=== PATIENT | female | born 1995 | race Caucasian/White ===

== ENCOUNTER 2018-04-28 10:41 | Emergency (ER) | payer SELFPAY ==
[~2018-04-28] VITALS: Ht 165.1 cm; Wt 63.6 kg
[2018-04-28 10:54] VITALS: BP 128/75
[2018-04-28] MEDS ORDERED: FLAGYL 250250 MG/TAB PO (11:59)
[2018-04-28] MEDS ORDERED: ATARAX 25MG25 MG/TAB PO (12:00)
[2018-04-28 12:58] LABS: COLLECTION METHOD CLEAN CATCH
[2018-04-28 13:07] LABS: BASO # 0.1 (0.0-0.2); BASO % 0.9 % (0.0-2.0); EOS # 0.1 (0.0-0.7); EOS % 1.1 % (0-4.0); GRAN # 2.6 (1.4-6.5); GRAN % 39.7 % (42.2-75.2); HEMOGLOBIN 11.7 g/dl (12.5-16.0); LYMPH # 3.1 (1.2-3.4); LYMPH % 47.5 % (20.0-51.0); MEAN CELL VOLUME 91 fl (80.0-100.0); MEAN CORPUSCULAR HEMOGLOBIN 31 pg (27.0-31.0); MEAN CORPUSCULAR HGB CONC 34 g/dl (33.0-37.0); MEAN PLATELET VOLUME 10.8 fl (7.4-10.4); MONO # 0.6 (0.1-0.6); MONO % 9.6 % (1.7-9.3); PLATELET COUNT 283 K/mm3 (130-400); RED BLOOD COUNT 3.76 M/mm3 (4.10-5.30)
[2018-04-28 13:08] LABS: HEMATOCRIT 34.3 % (37.0-47.0)
[2018-04-28 13:14] LABS: MUCOUS Present /lpf; PH 7 (5-8); SQUAMOUS EPITHELIAL 0-2 /hpf; URINE APPEARANCE Clear; URINE BACTERIA None Seen /hpf; URINE BILIRUBIN Negative (NEGATIVE); URINE BLOOD Negative (NEGATIVE); URINE COLOR Straw; URINE GLUCOSE 3+ (NEGATIVE); URINE KETONE Trace (NEGATIVE); URINE LEUKOCYTE ESTERASE Negative (NEGATIVE); URINE NITRATE Negative (NEGATIVE); URINE PROTEIN(semi-quant) Negative (NEGATIVE); URINE RBC None Seen /hpf; URINE UROBILINOGEN Negative (NEGATIVE)
[2018-04-28 13:17] LABS: ALBUMIN 3.4 gm/dL (3.5-5.0); BILIRUBIN,TOTAL 0.3 mg/dL (0.0-1.0); CALCIUM 9.4 mg/dL (8.4-10.2); CREATININE, serum 0.38 mg/dL (0.52-1.25); POTASSIUM 3.7 mmol/L (3.4-5.0); TOTAL PROTEIN 6.8 gm/dL (6.4-8.2)
[2018-04-28] MEDS ORDERED: DIFLUCAN150 MG PO (13:51)
[2018-04-28 14:00] VITALS: PULSE 86; TEMP 97.6
== END 2018-04-28 14:01 | disposition home or self-care (01) ==
LOC: COL.ER 10:41
PROVIDERS: Nurse Practitioner Primary Care
DX: B37.3 Candidiasis of vulva and vagina (principal); E10.9 Type 1 diabetes mellitus without complications; I10 Essential (primary) hypertension; Z85.6 Personal history of leukemia; Z87.442 Personal history of urinary calculi
CPT/HCPCS: J1885

== ENCOUNTER 2018-05-06 17:16 | Emergency (ER) | payer SELFPAY ==
[~2018-05-06] VITALS: Ht 165.1 cm; Wt 63.7 kg
[~2018-05-06 17:16] MED LIST: ATARAX 25MG25 MG/TAB PO; DIFLUCAN150 MG PO; FLAGYL 250250 MG/TAB PO
[2018-05-06 17:25] VITALS: TEMP 98.4
[2018-05-06] MEDS ORDERED: BACTRIM DS 8001 TAB PO (17:51)
[2018-05-06] MEDS ORDERED: NOVOLOG 100U100 U/M1 SQ (18:15)
[2018-05-06] MEDS ORDERED: LEVEMIR100 U/ML SQ (18:16)
[2018-05-06 18:39] LABS: CALCIUM 8.7 mg/dL (8.4-10.2); CREATININE, serum 0.58 mg/dL (0.52-1.25); POTASSIUM 3.7 mmol/L (3.4-5.0)
[2018-05-06 19:52] VITALS: BP 122/74; PULSE 92
[2018-05-08] VITALS (563 sets, daily range): O2SAT 85–100
[2018-05-09] VITALS (202 sets, daily range): O2SAT 91–100
== END 2018-05-06 19:50 | disposition home or self-care (01) ==
LOC: COL.ER 17:16
PROVIDERS: Nurse Practitioner
DX: S81.802A Unspecified open wound, left lower leg, initial encounter (principal); E10.9 Type 1 diabetes mellitus without complications; I10 Essential (primary) hypertension; F32.9 Major depressive disorder, single episode, unspecified; F41.9 Anxiety disorder, unspecified; Z88.0 Allergy status to penicillin; Z23 Encounter for immunization; X58.XXXA Exposure to other specified factors, initial encounter
CPT/HCPCS: J1815

== ENCOUNTER 2018-05-08 09:30 | Inpatient (IN) | payer BC ==
[~2018-05-08] VITALS: Ht 167.6 cm; Wt 62.3 kg
[~2018-05-08 09:30] MED LIST changes: +BACTRIM DS 8001 TAB PO; +LEVEMIR100 U/ML SQ; +NOVOLOG 100U100 U/M1 SQ
[2018-05-08 10:20] LABS: COLLECTION METHOD CLEAN CATCH
[2018-05-08 10:20] LABS: HEMATOCRIT 44.3 % (37.0-47.0); HEMOGLOBIN 14.6 g/dl (12.5-16.0); MEAN CELL VOLUME 94 fl (80.0-100.0); MEAN CORPUSCULAR HEMOGLOBIN 31 pg (27.0-31.0); MEAN CORPUSCULAR HGB CONC 33 g/dl (33.0-37.0); MEAN PLATELET VOLUME 10.7 fl (7.4-10.4); PLATELET COUNT 571 K/mm3 (130-400); RED BLOOD COUNT 4.72 M/mm3 (4.10-5.30); REDCELL DISTRIBUTION WIDTH-CV 14.1 % (11.5-14.5)
[2018-05-08 10:29] LABS: MUCOUS Present /lpf; PH 5 (5-8); SQUAMOUS EPITHELIAL None Seen /hpf; URINE APPEARANCE Clear; URINE BACTERIA Rare /hpf; URINE BILIRUBIN Negative (NEGATIVE); URINE BLOOD Negative (NEGATIVE); URINE COLOR Straw; URINE GLUCOSE 3+ (NEGATIVE); URINE KETONE 2+ (NEGATIVE); URINE LEUKOCYTE ESTERASE Negative (NEGATIVE); URINE NITRATE Negative (NEGATIVE); URINE PROTEIN(semi-quant) 1+ (NEGATIVE); URINE RBC 0-2 /hpf; URINE UROBILINOGEN Negative (NEGATIVE)
[2018-05-08 10:43] LABS: ALANINE AMINOTRANSFERASE 19 U/L (9-52); ALBUMIN 4.6 gm/dL (3.5-5.0); ALKALINE PHOSPHATASE 362 U/L (50-136); AST,SGOT 25 U/L (15-37); BILIRUBIN,TOTAL 0.4 mg/dL (0.0-1.0); BLOOD UREA NITROGEN 16 mg/dL (7-17); CALCIUM 9.3 mg/dL (8.4-10.2); CHLORIDE 98 mmol/L (98-107); CREATININE, serum 0.78 mg/dL (0.52-1.25); MAGNESIUM 2.1 mg/dL (1.6-2.3); PHOSPHOROUS 6.7 mg/dL (2.5-4.5); POTASSIUM 5.2 mmol/L (3.4-5.0); SODIUM 133 mmol/L (137-145); TOTAL PROTEIN 8.6 gm/dL (6.4-8.2)
[2018-05-08 10:45] LABS: GLUCOSE 847 mg/dL (74-106)
[2018-05-08 10:46] LABS: CARBON DIOXIDE < 5 mmol/L (22-30)
[2018-05-08 10:47] LABS: ACETONE,SERUM LARGE
[2018-05-08 10:53] LABS: BAND 16 % (0-10); LYMPHOCYTE 21 % (20.0-51.0); NEUTROPHILS 61 % (42.0-75.2); NUCLEATED RED BLOOD CELL 1 (0-6)
[2018-05-08 10:54] LABS: PLATELET ESTIMATE INCREASED (NORMAL)
[2018-05-08 11:29] LABS: TSH w REFLEX 1.06 uIU/mL (0.465-4.680)
--- NOTE | 2018-05-08 11:56 | NUR ---
PATIENT ARRIVED TO ICU ROOM 4 VIA STRETCHER. SHE IS MAKING UNCOMPREHENSABLE SOUNDS. IV FLUIDS INFUSING WELL AN INSULIN DRIP AT 5 UNITS PER HOUR. PATIENT WAS PLACED ON THE SENIOR COMMERCIAL LOAN OFFICER WITH A HEART RATE OF 148. OTHER VITAL SIGNS STABLE AT THIS TIME.
[2018-05-08 12:12] LABS: ARTERIAL BLD GAS O2 SATURATION 97.2 % (92-100); ARTERIAL BLOOD GAS BASE EXCESS -29.3 (-2-2); ARTERIAL BLOOD GAS HCO3 1.7 meq/L (22-26); ARTERIAL BLOOD GAS PCO2 8.6 mmHg (35-45); ARTERIAL BLOOD GAS PO2 142.7 mmHg (80-100); ARTERIAL BLOOD GAS pH 6.92 (7.35-7.45)
--- NOTE | 2018-05-08 12:54 | NUR ---
Patient was brought in by EMS and then admitted to the ICU. SW attempted to get a contact number for next of kin but patient was not able to provide a clear number and patient's phone was locked. Doctor and nurse phone number given on patient's facesheet, Luke Mccoy (patient's father). Doctor was unable to speak with anyone but she left a message.
--- NOTE | 2018-05-08 12:55 | NUR ---
DR. WADE HERE TO SEE PATIENT AND SANJANA ORTIZ WITH ANESTHESIA ALSO HERE. SEDATION WAS PROVIDED AND GIVEN BY ANESTHESIA. PATIENT WAS INTUBATED WITH A 7.5 ET TUBE. 20 CM AT THE TEETH. OG AND CROWE CATHETER INSERTED. PATIENT WILL BE STARTED ON A PROPOFOL DRIP FOR SEDATION.
--- NOTE | 2018-05-08 13:22 | NUR ---
ASSISTED RENTAL SALES ASSOCIATE WITH INTUBATION. PT TOLERATED WELL. 7.[address] WADE PT'S TUBE IS NOW 20 AT THIS TEETH FOR PLACEMENT. PT PLACED ON MECHANICAL VENT. PER SETTINGS BY DR. WADE AT BEDSIDE.
--- NOTE | 2018-05-08 13:24 | NUR ---
UNABLE TO OBTAIN ANY TYPE OF BLOOD SAMPLE FROM PATIENT PRIOR TO THIS BLOOD GLUCOSE RESULT.
[2018-05-08 13:49] LABS: TRICYCLIC ANTIDEPRESS URINE NEGATIVE
--- NOTE | 2018-05-08 13:50 | NUR ---
PATIENT EXTREMELY AGGITATED. SHE CONTINUES TO PULL ON HER TUBES AND LINES AND TO SIT UP IN BED. ORDER FOR FENTANYL RECEIVED.
[2018-05-08 13:51] VITALS: BP 146/92; PULSE 145; TEMP 97
[2018-05-08 14:01] LABS: ALANINE AMINOTRANSFERASE 18 U/L (9-52); ALBUMIN 3.9 gm/dL (3.5-5.0); ALKALINE PHOSPHATASE 286 U/L (50-136); ANION GAP 24 mmol/L (7-16); AST,SGOT 25 U/L (15-37); BILIRUBIN,TOTAL 0.3 mg/dL (0.0-1.0); BLOOD UREA NITROGEN 15 mg/dL (7-17); CALCIUM 7.7 mg/dL (8.4-10.2); CHLORIDE 112 mmol/L (98-107); CREATININE, serum 0.59 mg/dL (0.52-1.25); MAGNESIUM 1.8 mg/dL (1.6-2.3); PHOSPHOROUS 5.1 mg/dL (2.5-4.5); POTASSIUM 3.7 mmol/L (3.4-5.0); SODIUM 142 mmol/L (137-145); TOTAL PROTEIN 7.5 gm/dL (6.4-8.2)
[2018-05-08 14:03] LABS: GLUCOSE 605 mg/dL (74-106)
[2018-05-08 14:06] LABS: ACETAMINOPHEN < 10 ug/mL (10-30); ALCOHOL(ethanol),MEDICAL < 10 mg/dL; CARBON DIOXIDE 6 mmol/L (22-30); SALICYLATE < 1.0 mg/dL
[2018-05-08 14:08] LABS: ARTERIAL BLD GAS O2 SATURATION 97.8 % (92-100); ARTERIAL BLD GAS TCO2 CT 4.7; ARTERIAL BLOOD GAS BASE EXCESS -25.6 (-2-2); ARTERIAL BLOOD GAS HCO3 4.2 meq/L (22-26)
[2018-05-08 14:09] LABS: ARTERIAL BLOOD GAS PCO2 17.6 mmHg (35-45); ARTERIAL BLOOD GAS PO2 143.6 mmHg (80-100)
--- NOTE | 2018-05-08 14:30 | NUR ---
PATIENT STILL CONTINUES TO BE AGGITATED DESPITE FENTANYL. ORDER FOR PRECEDEX RECEIVED WITH IV PUSH VECURONIUM ALSO ORDERED PRN.
[2018-05-08 15:50] LABS: CALCIUM 7.7 mg/dL (8.4-10.2); CREATININE, serum 0.62 mg/dL (0.52-1.25); POTASSIUM 3.9 mmol/L (3.4-5.0)
[2018-05-08 16:00] VITALS: BP 115/74; PULSE 104; TEMP 99.3
[2018-05-08 16:05] VITALS: PULSE 147
--- NOTE | 2018-05-08 17:00 | NUR ---
SEDATION VACATION NOT DONE DUE TO JUST GETTING INTUBATED
--- NOTE | 2018-05-08 17:05 | NUR ---
CAN NOT ADDRESS PATIENT'S HOME MEDICATIONS.
[2018-05-08 17:13] LABS: ARTERIAL BLD GAS O2 SATURATION 97.3 % (92-100); ARTERIAL BLOOD GAS BASE EXCESS -14.1 (-2-2); ARTERIAL BLOOD GAS HCO3 11.2 meq/L (22-26); ARTERIAL BLOOD GAS PCO2 25.5 mmHg (35-45); ARTERIAL BLOOD GAS PO2 102.2 mmHg (80-100); ARTERIAL BLOOD GAS pH 7.26 (7.35-7.45)
--- NOTE | 2018-05-08 17:14 | NUR ---
ICU staff has not been able to contact any family for patient. SW contacted [place] [employer] about sending an officer to patient's house to make contact with family/roommates. PRICILA provided ICUs phone number and [place] [employer] will contact them when they make contact with family. SW informed nurse.
--- NOTE | 2018-05-08 17:30 | NUR ---
FLUIDS SWITCHED TO D51/2NS
[2018-05-08 17:53] LABS: CALCIUM 8.1 mg/dL (8.4-10.2); CREATININE, serum 0.55 mg/dL (0.52-1.25); POTASSIUM 4.2 mmol/L (3.4-5.0)
[2018-05-08 18:00] VITALS: BP 89/44
[2018-05-08 18:15] VITALS: BP 90/42
--- NOTE | 2018-05-08 19:10 | NUR ---
REPORT GIVEN TO JELLY SOMERS.
--- NOTE | 2018-05-08 19:38 | NUR ---
Patient assessment completed and charted at this time, please see documentation for details. Patient in bed, tolerating ventilator at this time. Restraints tied and reinforced currently. This nurse spoke with Dr. Zamora and he stated he would be here early to potentially extubate patient. Will continue to monitor and assess.
[2018-05-08 19:56] LABS: CALCIUM 8.1 mg/dL (8.4-10.2); CREATININE, serum 0.52 mg/dL (0.52-1.25)
[2018-05-08 20:00] VITALS: BP 96/55; PULSE 105; TEMP 99.3
[2018-05-08 21:11] LABS: ARTERIAL BLD GAS O2 SATURATION 98.1 % (92-100); ARTERIAL BLD GAS TCO2 CT 15.9; ARTERIAL BLOOD GAS BASE EXCESS -6.8 (-2-2); ARTERIAL BLOOD GAS HCO3 15.2 meq/L (22-26); ARTERIAL BLOOD GAS pH 7.46 (7.35-7.45)
[2018-05-08 21:12] LABS: ARTERIAL BLOOD GAS PCO2 22.1 mmHg (35-45); ARTERIAL BLOOD GAS PO2 136.7 mmHg (80-100)
--- NOTE | 2018-05-08 21:14 | NUR ---
[facility] CALLED WITH 2100 ABG RESULTS. DOCTOR WILL REVIEW RESULTS AND GO OVER CURRENT SETTINGS TO MAKE ANY CHANGED IF NECESSARY. [facility] CALLED BACK AT 2136 WITH NO VENT CHANGED FROM ABG AT 2100. WILL PROCEED WITH AM ABG AND SMART CARE PER DR. WADE WITH HOPES OF EXTUBATION. MORNING CARE WILL BE DONE EARLY DR. WADE IS COMING IN AROUND 0630 ON 05/09/18
[2018-05-08 21:57] LABS: CREATININE, serum 0.52 mg/dL (0.52-1.25); POTASSIUM 3.5 mmol/L (3.4-5.0)
[2018-05-09] VITALS (8 sets, daily range): BP systolic 101–140; BP diastolic 67–95; PULSE 82–108; TEMP 97.2–99.7
[2018-05-09 00:10] LABS: CALCIUM 8.1 mg/dL (8.4-10.2); CREATININE, serum 0.49 mg/dL (0.52-1.25); POTASSIUM 3.3 mmol/L (3.4-5.0)
[2018-05-09 01:52] LABS: CALCIUM 8.1 mg/dL (8.4-10.2); CREATININE, serum 0.46 mg/dL (0.52-1.25); POTASSIUM 3.7 mmol/L (3.4-5.0)
[2018-05-09 04:04] LABS: CALCIUM 8.1 mg/dL (8.4-10.2); CREATININE, serum 0.43 mg/dL (0.52-1.25); POTASSIUM 3.8 mmol/L (3.4-5.0)
[2018-05-09 04:57] LABS: ARTERIAL BLD GAS O2 SATURATION 98.2 % (92-100); ARTERIAL BLOOD GAS BASE EXCESS -7.4 (-2-2); ARTERIAL BLOOD GAS HCO3 14.3 meq/L (22-26); ARTERIAL BLOOD GAS pH 7.47 (7.35-7.45)
[2018-05-09 04:58] LABS: ARTERIAL BLOOD GAS PCO2 20.4 mmHg (35-45)
[2018-05-09 05:52] LABS: BASO % 0.1 % (0.0-2.0); EOS % 0.3 % (0-4.0); GRAN # 4.7 (1.4-6.5); GRAN % 51.8 % (42.2-75.2); LYMPH # 3.9 (1.2-3.4); LYMPH % 42.8 % (20.0-51.0); MEAN CORPUSCULAR HGB CONC 35 g/dl (33.0-37.0); MEAN PLATELET VOLUME 10.2 fl (7.4-10.4); MONO # 0.4 (0.1-0.6); MONO % 4.2 % (1.7-9.3); RED BLOOD COUNT 3.36 M/mm3 (4.10-5.30); REDCELL DISTRIBUTION WIDTH-CV 14.6 % (11.5-14.5)
[2018-05-09 05:54] LABS: HEMATOCRIT 29.2 % (37.0-47.0); HEMOGLOBIN 10.2 g/dl (12.5-16.0); MEAN CELL VOLUME 87 fl (80.0-100.0); MEAN CORPUSCULAR HEMOGLOBIN 30 pg (27.0-31.0); PLATELET COUNT 337 K/mm3 (130-400)
[2018-05-09 06:04] LABS: CALCIUM 8.2 mg/dL (8.4-10.2); CREATININE, serum 0.45 mg/dL (0.52-1.25); POTASSIUM 3.6 mmol/L (3.4-5.0)
--- NOTE | 2018-05-09 06:22 | NUR ---
Patient extubated at [address] with Dr. Zamora in room. Patient tolerated well, on RA with SPO2 of 100% . No issues post extubation, complains of mild discomfort in throat. Patient alert and oriented, asking for phone. Patient was given phone at this time, advised to limit talking as it can irritate throat more. will continue to monitor and assess.
--- NOTE | 2018-05-09 06:48 | NUR ---
PT EXTUBATED TO RA AT 0630. PT PASSED SMART CARE AND DR WADE GAVE THE GO AHEAD TO EXTUBATED THE PT. NO DISTRESS NOTED AND WILL CONTINUE TO MONITOR. PT AT 100% AT 89 HR RR AT 20.
--- NOTE | 2018-05-09 07:30 | NUR ---
Bedside report received from JELLY Dumont. Patient is extubated. VS WNL. IV gtts reviewed. Patient asks for water or ice at this time. Will continue to monitor.
[2018-05-09 07:49] LABS: CALCIUM 8.4 mg/dL (8.4-10.2); CREATININE, serum 0.43 mg/dL (0.52-1.25); POTASSIUM 3.6 mmol/L (3.4-5.0)
--- NOTE | 2018-05-09 09:20 | NUR ---
Reviewed this a.m. chest x-ray. PICC tip location in the lower right atrium. Visited with primary care nurse and it was reported that patient has been having some arrhythmias. Technique right upper arm PICC dressing change done with insertion site cleansed with ChloraPrep 1, catheter pulled back 5 cm to 4 cm marking on catheter, chlorhexidine impregnated disc applied, StatLock, skin prep, and Tegaderm applied. No other signs or symptoms of IV complications noted. Patient voiced no concerns. Primary care nurse informed. Wrapped with Timothy to protect catheter.
[2018-05-09 09:43] LABS: CALCIUM 8.4 mg/dL (8.4-10.2); CREATININE, serum 0.4 mg/dL (0.52-1.25); POTASSIUM 3.7 mmol/L (3.4-5.0)
--- NOTE | 2018-05-09 09:46 | NUR ---
Patient has been having intermittent nausea and vomiting since the start of my shift. Ice chips and sips of water were provided per patient request. Patient told that since she is not able to tolerate the liquids, we should keep her NPO. She verbalizes understanding. Will continue to monitor.
[2018-05-09] MEDS ORDERED: FLAGYL 250250 MG/TAB PO (12:49)
[2018-05-09] MEDS ORDERED: MULTI VITAMINS1 TAB PO (12:50)
[2018-05-09] MEDS ORDERED: LEXAPRO 5MG5 MG PO (12:50)
[2018-05-09] MEDS ORDERED: VITAMIN D 400400 IU PO (12:51)
[2018-05-09 15:10] LABS: CALCIUM 8.4 mg/dL (8.4-10.2); CREATININE, serum 0.41 mg/dL (0.52-1.25); POTASSIUM 3.4 mmol/L (3.4-5.0)
[2018-05-09 16:06] LABS: ALANINE AMINOTRANSFERASE 21 U/L (9-52); ALBUMIN 2.7 gm/dL (3.5-5.0); ALKALINE PHOSPHATASE 147 U/L (50-136); AST,SGOT 22 U/L (15-37); BILIRUBIN UNCONJUGATED 0.1 mg/dL (0.0-1.1); BILIRUBIN,TOTAL < 0.1 mg/dL (0.0-1.0); TOTAL PROTEIN 5.8 gm/dL (6.4-8.2)
--- NOTE | 2018-05-09 16:13 | NUR ---
SW met with patient to disucss discharge plan. Narcisa reports she plans to return home once she is discharged. Patient lives in [place] with her roommate and works here in [place]. 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 Patient reports her PCP, Maggie John, is in [place] and she obtains prescriptions from [facility] either in [place] or [place]. Patient is independent with ADLs and does not use any home health services or DME. Patient continues to not want her parents contacted. Financial Counsleor also met with patient about self pay status. SW will continue to follow.
--- NOTE | 2018-05-09 16:40 | NUR ---
DR. YUN ON THE UNIT. SHE IS UPDATED ON THE PATIENT'S LAB WORK. SHE STATES TO CALL DR. WADE TO OK WITH HIM TO TRANSITION TO LONG ACTING INSULIN AND MODERATE DOSE SLIDING SCALE INSULIN Q4HR. WILL CALL DR. WADE AFTER ABDOMINAL ULTRASOUND IS COMPLETED.
--- NOTE | 2018-05-09 17:04 | NUR ---
Dr. Zamora called with update. Orders received to start Levemir and SSI, see emar. Then, switch IVF to NS at 75 cc/hr. see orders.
[2018-05-09 17:18] LABS: LIPASE 6429 U/L (23-300)
[2018-05-09 17:42] LABS: ARTERIAL BLD GAS O2 SATURATION 96.3 % (92-100); ARTERIAL BLD GAS TCO2 CT 19.2; ARTERIAL BLOOD GAS BASE EXCESS -5.5 (-2-2); ARTERIAL BLOOD GAS HCO3 18.2 meq/L (22-26); ARTERIAL BLOOD GAS PCO2 30.2 mmHg (35-45); ARTERIAL BLOOD GAS PO2 87.7 mmHg (80-100)
--- NOTE | 2018-05-09 18:14 | NUR ---
Changes made to insulin, per previous orders from Dr. Zamora. Patient given sugar free jello and chicken broth, per her request and clear liquid diet order recently received. Will continue to monitor.
[2018-05-10] VITALS: BP 147/96; PULSE 106; TEMP 98.7
[2018-05-10 04:00] VITALS: BP 141/92; PULSE 107; TEMP 98.5
[2018-05-10 05:36] LABS: BASO % 0.4 % (0.0-2.0); EOS % 0.4 % (0-4.0); GRAN # 5.5 (1.4-6.5); GRAN % 64.4 % (42.2-75.2); HEMOGLOBIN 10.6 g/dl (12.5-16.0); LYMPH # 2.5 (1.2-3.4); LYMPH % 29.1 % (20.0-51.0); MEAN CELL VOLUME 90 fl (80.0-100.0); MEAN CORPUSCULAR HEMOGLOBIN 31 pg (27.0-31.0); MEAN CORPUSCULAR HGB CONC 34 g/dl (33.0-37.0); MEAN PLATELET VOLUME 10.5 fl (7.4-10.4); MONO # 0.5 (0.1-0.6); MONO % 5.5 % (1.7-9.3); PLATELET COUNT 289 K/mm3 (130-400); RED BLOOD COUNT 3.48 M/mm3 (4.10-5.30); REDCELL DISTRIBUTION WIDTH-CV 15.4 % (11.5-14.5)
[2018-05-10 05:42] LABS: HEMATOCRIT 31.3 % (37.0-47.0)
[2018-05-10 05:50] LABS: CALCIUM 8.2 mg/dL (8.4-10.2); CREATININE, serum 0.4 mg/dL (0.52-1.25); MAGNESIUM 1.4 mg/dL (1.6-2.3); POTASSIUM 3.1 mmol/L (3.4-5.0)
[2018-05-10 08:00] VITALS: BP 153/106; PULSE 106; TEMP 97.7
--- NOTE | 2018-05-10 08:00 | NUR ---
INITIAL ASSESSMENT COMPLETED. PATIENT AWAKE AND ALERT. SHE IS COMPLAINING OF PAIN TO HER ABDOMEN AND VOMITING. SHE HAS VOMITED MULTIPLE TIMES TODAY OF THIN LIQUIDS. DR. RUSSELL CALLED AND ORDERS RECEIVED FOR IV PHENERGAN. PATIENT DENIES ANY FURTHER REQUESTS AT THIS TIME.
[2018-05-10 12:00] VITALS: BP 131/96; PULSE 98; TEMP 97.6
--- NOTE | 2018-05-10 13:22 | NUR ---
PRICILA met with patient to address her broken insulin pump. Patient reports she will be ordering a new pump on Sunday and it will be mailed to her within a day or two. Patient also provided her insurance information to the financial counselor. PRICILA then informed by Joselin ([phone]) from [facility] that patient has had 14 hospital admissions in the last 12 months. PRICILA and JAXSON will follow up with patient this afternoon about multiple admissions.
--- NOTE | 2018-05-10 14:33 | NUR ---
PRICILA and JAXSON met with patient about coming up with a plan for managing her diabetes better. NCM voiced concern about patient having 14 admissions and how she has been noncompliant with managing her diabetes. Patient reported she has an Acoustical Tile Carpenters Supervisor in [place] named Raquel. Patient was unsure or the last name. Patient reports her and Luciana have come up with a plan to get patient a new insulin pump to help her manage the diabetes. PRICILA then did research and found that patient has seen Luciana Fontenot APRN at [facility] in [place] ([phone]). Patient has had one appoitment with Luciana but missed her second appoitment. Luciana Sood's nurse, reports that it was recommended for patient to contact [employer] to order a new insulin pump and also to contact [employer] to order a continuous glucose monitor. She also reports patient is has an appointment scheduled for 05/27. PRICILA then contacted [employer] ([phone]) to find out if patient has made the order for the new insulin pump. [employer] reports that patient was referred to the distribultor, [facility], and they will supply the pump. PRICILA then contacted [employer] ([phone]) about pump order. They report the order has been canceled because they have not been able to reach the patient. The rep suggested SW give patient their phone number and extension of who she needs to contact to order the pump. SW provided the phone number to patient and strongly encourage patient to contact them today. Patient was agreeable. PRICILA updated nurse and PA with the above info. once
[2018-05-10 16:00] VITALS: BP 136/101; PULSE 100; TEMP 99
--- NOTE | 2018-05-10 16:08 | NUR ---
PATIENT STARTING TO FEEL BETTER. NAUSEA IS BASICALLY GONE AND PATIENT WOULD LIKE TO TRY TO EAT SOMETHING A LITTLE MORE SOLID. SHE STATES SHE IS STILL HAVING PAIN.
--- NOTE | 2018-05-10 19:00 | NUR ---
REPORT GIVEN TO JELLY RAMIREZ.
[2018-05-10 20:00] VITALS: BP 126/88; PULSE 106; TEMP 98
[2018-05-11] VITALS: BP 116/70; PULSE 100; TEMP 98.7
[2018-05-11 04:00] VITALS: BP 136/93; PULSE 96; TEMP 98.9
[2018-05-11 05:06] LABS: BASO % 0.6 % (0.0-2.0); EOS % 0.6 % (0-4.0); GRAN # 2.6 (1.4-6.5); GRAN % 51.6 % (42.2-75.2); HEMOGLOBIN 10.3 g/dl (12.5-16.0); LYMPH % 39.8 % (20.0-51.0); MEAN CELL VOLUME 90 fl (80.0-100.0); MEAN CORPUSCULAR HEMOGLOBIN 31 pg (27.0-31.0); MEAN CORPUSCULAR HGB CONC 34 g/dl (33.0-37.0); MEAN PLATELET VOLUME 10.4 fl (7.4-10.4); MONO # 0.4 (0.1-0.6); MONO % 7.2 % (1.7-9.3); PLATELET COUNT 254 K/mm3 (130-400); RED BLOOD COUNT 3.37 M/mm3 (4.10-5.30)
[2018-05-11 05:10] LABS: HEMATOCRIT 30.3 % (37.0-47.0)
[2018-05-11 05:17] LABS: ALBUMIN 2.8 gm/dL (3.5-5.0); BILIRUBIN,TOTAL 0.4 mg/dL (0.0-1.0); CALCIUM 8.5 mg/dL (8.4-10.2); CREATININE, serum 0.39 mg/dL (0.52-1.25); MAGNESIUM 1.8 mg/dL (1.6-2.3); POTASSIUM 3.1 mmol/L (3.4-5.0)
--- NOTE | 2018-05-11 07:05 | NUR ---
Report recieved from Rosita REAVES. Patient awake and alert in bed, denies needs at this time.
[2018-05-11 08:00] VITALS: BP 129/93; PULSE 109; TEMP 98.4
--- NOTE | 2018-05-11 11:00 | NUR ---
Dr. Rodriguez here to see patient for FIELD STAFF consult. Pelvic exam with speculum done, RN at bedside. GC probe and wet mount complete. Dr. Rodriguez would like called with results. Patient tolerates fair, complains of increased pain after.
--- NOTE | 2018-05-11 13:25 | NUR ---
Report called to Khadijah REAVES.
--- NOTE | 2018-05-11 13:50 | NUR ---
Transferred to room 346 via wheel Khadijah mai RN at bedside to accept patient.
[2018-05-11 16:13] VITALS: BP 125/83; PULSE 108; TEMP 97.9
--- NOTE | 2018-05-11 18:30 | NUR ---
No c/o pain or nausea. Ate diabetic diet. Drowsy. Repositions self from side to side in bed.
[2018-05-11 19:55] VITALS: BP 122/79; PULSE 91; TEMP 98.5
--- NOTE | 2018-05-11 22:13 | NUR ---
PT IN BED. UP INDEPENDENTLY. PT HAS BEEN A BIT DROWSY BUT AROUSES WITH VERBAL STIMULATION. 1999 ACCU CHECK READING 276. PT ATE LATE SUPPER.
[2018-05-12] VITALS (7 sets, daily range): BP systolic 119–144; BP diastolic 74–92; PULSE 59–119; TEMP 97.7–98.4
[2018-05-12 06:53] LABS: BASO % 0.2 % (0.0-2.0); EOS % 0.4 % (0-4.0); GRAN # 2.7 (1.4-6.5); GRAN % 54.9 % (42.2-75.2); HEMOGLOBIN 10.9 g/dl (12.5-16.0); LYMPH # 1.8 (1.2-3.4); LYMPH % 36.3 % (20.0-51.0); MEAN CELL VOLUME 90 fl (80.0-100.0); MEAN CORPUSCULAR HEMOGLOBIN 30 pg (27.0-31.0); MEAN CORPUSCULAR HGB CONC 34 g/dl (33.0-37.0); MEAN PLATELET VOLUME 10.8 fl (7.4-10.4); MONO # 0.4 (0.1-0.6); MONO % 7.8 % (1.7-9.3); PLATELET COUNT 269 K/mm3 (130-400); RED BLOOD COUNT 3.58 M/mm3 (4.10-5.30); REDCELL DISTRIBUTION WIDTH-CV 14.4 % (11.5-14.5)
[2018-05-12 07:00] LABS: HEMATOCRIT 32.2 % (37.0-47.0)
[2018-05-12 07:06] LABS: CREATININE, serum 0.35 mg/dL (0.52-1.25); POTASSIUM 3.6 mmol/L (3.4-5.0)
--- NOTE | 2018-05-12 12:24 | NUR ---
nursery worker provided that patient with a shirt and jacket for discharge when she is ready as her shirt was cut off of her when she was brought into the Emergency Department unconscious. Patient lives in [place], [place] and is waiting for doctor's approval to return home. Patient's friend/co-worker (Mary [phone]) plans to pick the patient up from the hospital for discharge and will then help the patient filler picker her car which is at her place of employment. nursery worker left Mary's contact information on patient's chart for nursing staff as needed. No further needs at this time.
[2018-05-12] MEDS ORDERED: LEVAQUIN 5500 MG/TA1 PO (12:52)
[2018-05-12] MEDS ORDERED: NOVOLOG FLEX100 U/ML SQ (15:22)
--- NOTE | 2018-05-12 18:30 | NUR ---
Complained of abdominal pain after drinking potassium in juice. Pain improved after Hallie and GI cocktail. Took diabetic diet well. Denied nausea. PICC line dc'd. Prescriptions and home instructions given. Waiting for ride home.
--- NOTE | 2018-05-12 19:55 | NUR ---
PT RESTING. NO c/o PAIN. PT WAITING FOR RIDE HOME. ACCUCHECK 303 mg/dL. PT ADMIN. HER INSULIN PRIOR TO GOING HOME SHE REPORTED SHE WAS LOW ON INSULIN AT HOME.
--- NOTE | 2018-05-12 20:30 | NUR ---
PT'S FRIEND CAME TO GIVE HER A RIDE HOME. PT AMBULATED FROM FACILITY WITH HER BELONGINGS TO FRIEND'S CAR.
== END 2018-05-12 20:30 | disposition home or self-care (01) | DRG 637 ==
LOC: COL.ER 09:30 → ICU 10:53 → COL.ER 10:53 → ICU 05-09 03:00 → SURG 05-11 13:45
PROVIDERS: Emergency Medicine; Internal Medicine; Internal Medicine Pulmonary Disease; Physician Assistant; ADMIT Family Medicine
PROC: 5A1935Z Respiratory Ventilation, Less than 24 Consecutive Hours (ICD-10-PCS; principal; 2018-05-08)
DX: E10.10 Type 1 diabetes mellitus with ketoacidosis without coma (principal); K85.90 Acute pancreatitis without necrosis or infection, unspecified; I47.1 Supraventricular tachycardia; Z79.4 Long term (current) use of insulin; E86.0 Dehydration; E87.5 Hyperkalemia; Z85.6 Personal history of leukemia; N76.0 Acute vaginitis; B95.4 Other streptococcus as the cause of diseases classified elsewhere; Z88.0 Allergy status to penicillin; Z96.41 Presence of insulin pump (external) (internal); E87.6 Hypokalemia; E83.42 Hypomagnesemia
CPT/HCPCS: 99223-AI; 99232-AI; 99233-AI; 99239; C1751; J1644; J1650; J1815; J1956; J2250; J2270; J2405; J2550; J2704; J3010; J3475; J3480; J7030; J7120

== ENCOUNTER 2018-06-12 07:04 | Emergency (ER) | payer BC ==
[~2018-06-12] VITALS: Ht 175.3 cm; Wt 61.4 kg
[~2018-06-12 07:04] MED LIST changes: +LEVAQUIN 5500 MG/TA1 PO; +LEXAPRO 5MG5 MG PO; +MULTI VITAMINS1 TAB PO; +NOVOLOG FLEX100 U/ML SQ; +VITAMIN D 400400 IU PO
[2018-06-12 07:09] VITALS: BP 123/581
[2018-06-12] MEDS ORDERED: CIPRODEX OT (07:45)
[2018-06-12] MEDS ORDERED: NORCO 325 MG-51 TAB PO (07:45)
[2018-06-12] MEDS ORDERED: DOXYCYCLINE 10100 MG PO (07:45)
[2018-06-12 09:17] VITALS: PULSE 120; TEMP 98
== END 2018-06-12 09:20 | disposition home or self-care (01) ==
LOC: COL.ER 07:04
DX: H60.502 Unspecified acute noninfective otitis externa, left ear (principal); H66.92 Otitis media, unspecified, left ear; E10.10 Type 1 diabetes mellitus with ketoacidosis without coma
CPT/HCPCS: J1170; J2405

== ENCOUNTER 2018-07-04 10:52 | Emergency (ER) | payer BC ==
[~2018-07-04] VITALS: Ht 165.1 cm; Wt 59.1 kg
[~2018-07-04 10:52] MED LIST changes: +CIPRODEX OT; +DOXYCYCLINE 10100 MG PO; +NORCO 325 MG-51 TAB PO
[2018-07-04 11:00] VITALS: TEMP 98.2
[2018-07-04 11:26] LABS: COLLECTION METHOD CLEAN CATCH
[2018-07-04 11:39] LABS: MUCOUS Present /lpf; PH 5 (5-8); URINE APPEARANCE Hazy; URINE BACTERIA None Seen /hpf; URINE BILIRUBIN Negative (NEGATIVE); URINE BLOOD 1+ (NEGATIVE); URINE COLOR Yellow; URINE GLUCOSE 3+ (NEGATIVE); URINE KETONE 2+ (NEGATIVE); URINE LEUKOCYTE ESTERASE 1+ (NEGATIVE); URINE NITRATE Negative (NEGATIVE); URINE PROTEIN(semi-quant) 1+ (NEGATIVE); URINE UROBILINOGEN Negative (NEGATIVE)
[2018-07-04 11:54] LABS: ARTERIAL BLD GAS O2 SATURATION 97.6 % (92-100); ARTERIAL BLD GAS TCO2 CT 5.1; ARTERIAL BLOOD GAS BASE EXCESS -21.3 (-2-2); ARTERIAL BLOOD GAS HCO3 4.7 meq/L (22-26)
[2018-07-04 11:55] LABS: ARTERIAL BLOOD GAS PCO2 13.5 mmHg (35-45); ARTERIAL BLOOD GAS PO2 131.9 mmHg (80-100); ARTERIAL BLOOD GAS pH 7.16 (7.35-7.45)
[2018-07-04 11:58] LABS: BASO # 0.1 (0.0-0.2); BASO % 0.6 % (0.0-2.0); EOS % 0.1 % (0-4.0); GRAN # 7.4 (1.4-6.5); GRAN % 67.8 % (42.2-75.2); HEMATOCRIT 47.9 % (37.0-47.0); HEMOGLOBIN 15.9 g/dl (12.5-16.0); LYMPH % 27.7 % (20.0-51.0); MEAN CELL VOLUME 97 fl (80.0-100.0); MEAN CORPUSCULAR HEMOGLOBIN 32 pg (27.0-31.0); MEAN CORPUSCULAR HGB CONC 33 g/dl (33.0-37.0); MEAN PLATELET VOLUME 11.1 fl (7.4-10.4); MONO # 0.3 (0.1-0.6); MONO % 2.8 % (1.7-9.3); PLATELET COUNT 408 K/mm3 (130-400); RED BLOOD COUNT 4.96 M/mm3 (4.10-5.30); REDCELL DISTRIBUTION WIDTH-CV 13.5 % (11.5-14.5)
[2018-07-04 12:07] LABS: ALANINE AMINOTRANSFERASE 70 U/L (9-52); ALBUMIN 5.2 gm/dL (3.5-5.0); ALKALINE PHOSPHATASE 245 U/L (50-136); ANION GAP 37 mmol/L (7-16); AST,SGOT 92 U/L (15-37); BILIRUBIN,TOTAL 0.6 mg/dL (0.0-1.0); BLOOD UREA NITROGEN 20 mg/dL (7-17); CHLORIDE 98 mmol/L (98-107); CREATININE, serum 0.82 (0.52-1.25); POTASSIUM 3.7 mmol/L (3.4-5.0); SODIUM 142 mmol/L (137-145); TOTAL PROTEIN 9.7 gm/dL (6.4-8.2)
[2018-07-04 12:11] LABS: CARBON DIOXIDE 8 mmol/L (22-30); GLUCOSE 468 mg/dL (74-106)
[2018-07-04 12:17] LABS: ACETONE,SERUM MODERATE
[2018-07-04] MEDS ORDERED: ATARAX 25MG25 MG/TAB PO (14:24)
[2018-07-04 14:29] LABS: CALCIUM 9.1 mg/dL (8.4-10.2); CREATININE, serum 0.71 (0.52-1.25); POTASSIUM 4.3 mmol/L (3.4-5.0)
[2018-07-04 15:30] VITALS: BP 93/59; PULSE 109
== END 2018-07-04 15:30 | disposition left against medical advice (07) ==
LOC: COL.ER 10:52
PROVIDERS: Family Medicine
DX: E10.10 Type 1 diabetes mellitus with ketoacidosis without coma (principal); E87.6 Hypokalemia
CPT/HCPCS: 99205; J1815; J2405; J3010; J7030; J7120

== ENCOUNTER 2018-07-29 15:14 | Emergency (ER) | payer BC ==
[~2018-07-29] VITALS: Ht 165.1 cm; Wt 61.4 kg
[2018-07-29 15:19] VITALS: TEMP 97.6
[2018-07-29 15:47] LABS: COLLECTION METHOD CLEAN CATCH
[2018-07-29 16:06] LABS: BUDDING YEAST Present /hpf; MUCOUS Present /lpf; PH 6 (5-8); URINE APPEARANCE Clear; URINE BACTERIA None Seen /hpf; URINE BILIRUBIN Negative (NEGATIVE); URINE BLOOD Negative (NEGATIVE); URINE COLOR Colorless; URINE GLUCOSE 3+ (NEGATIVE); URINE KETONE 1+ (NEGATIVE); URINE LEUKOCYTE ESTERASE 2+ (NEGATIVE); URINE NITRATE Negative (NEGATIVE); URINE PROTEIN(semi-quant) Negative (NEGATIVE); URINE UROBILINOGEN Negative (NEGATIVE)
[2018-07-29 16:26] LABS: BASO % 0.5 % (0.0-2.0); EOS % 0.2 % (0-4.0); GRAN # 3.1 (1.4-6.5); HEMATOCRIT 38.1 % (37.0-47.0); LYMPH # 2.2 (1.2-3.4); LYMPH % 38.4 % (20.0-51.0); MEAN CELL VOLUME 93 fl (80.0-100.0); MEAN CORPUSCULAR HEMOGLOBIN 32 pg (27.0-31.0); MEAN CORPUSCULAR HGB CONC 34 g/dl (33.0-37.0); MEAN PLATELET VOLUME 11.1 fl (7.4-10.4); MONO # 0.3 (0.1-0.6); MONO % 5.4 % (1.7-9.3); PLATELET COUNT 277 K/mm3 (130-400); RED BLOOD COUNT 4.09 M/mm3 (4.10-5.30); REDCELL DISTRIBUTION WIDTH-CV 13.8 % (11.5-14.5)
[2018-07-29 16:31] LABS: ALANINE AMINOTRANSFERASE 60 U/L (9-52); ALBUMIN 4.2 gm/dL (3.5-5.0); ALKALINE PHOSPHATASE 349 U/L (50-136); ANION GAP 18 mmol/L (7-16); AST,SGOT 75 U/L (15-37); BILIRUBIN,TOTAL 0.8 mg/dL (0.0-1.0); BLOOD UREA NITROGEN 18 mg/dL (7-17); CALCIUM 9.2 mg/dL (8.4-10.2); CARBON DIOXIDE 20 mmol/L (22-30); CHLORIDE 92 mmol/L (98-107); CREATININE, serum 0.53 (0.52-1.25); POTASSIUM 4.7 mmol/L (3.4-5.0); SODIUM 129 mmol/L (137-145); TOTAL PROTEIN 7.5 gm/dL (6.4-8.2)
[2018-07-29 16:48] LABS: GLUCOSE 848 mg/dL (74-106)
[2018-07-29 18:17] VITALS: BP 147/91; PULSE 97
[2018-07-29 18:19] LABS: ACETONE,SERUM SMALL
== END 2018-07-29 18:17 | disposition home or self-care (01) ==
LOC: COL.ER 15:14
PROVIDERS: Emergency Medicine
DX: H92.02 Otalgia, left ear (principal); E11.65 Type 2 diabetes mellitus with hyperglycemia; Z79.4 Long term (current) use of insulin
CPT/HCPCS: J1815; J7030

== ENCOUNTER 2018-08-10 13:50 | Emergency (ER) | payer BC ==
[~2018-08-10] VITALS: Ht 165.1 cm; Wt 54.5 kg
[2018-08-10 13:54] VITALS: BP 121/83; TEMP 98.3
[2018-08-10 14:18] LABS: COLLECTION METHOD CLEAN CATCH
[2018-08-10 14:33] LABS: BASO % 0.3 % (0.0-2.0); EOS % 0.2 % (0-4.0); GRAN # 3.2 (1.4-6.5); GRAN % 51.3 % (42.2-75.2); HEMATOCRIT 40.9 % (37.0-47.0); HEMOGLOBIN 14.8 g/dl (12.5-16.0); LYMPH # 2.6 (1.2-3.4); LYMPH % 41.3 % (20.0-51.0); MEAN CELL VOLUME 90 fl (80.0-100.0); MEAN CORPUSCULAR HEMOGLOBIN 33 pg (27.0-31.0); MEAN CORPUSCULAR HGB CONC 36 g/dl (33.0-37.0); MEAN PLATELET VOLUME 11.2 fl (7.4-10.4); MONO # 0.4 (0.1-0.6); MONO % 6.6 % (1.7-9.3); PLATELET COUNT 338 K/mm3 (130-400); RED BLOOD COUNT 4.53 M/mm3 (4.10-5.30); REDCELL DISTRIBUTION WIDTH-CV 14.5 % (11.5-14.5)
[2018-08-10 14:35] LABS: MUCOUS Present /lpf; PH 6 (5-8); SQUAMOUS EPITHELIAL 0-2 /hpf; URINE APPEARANCE Clear; URINE BACTERIA None Seen /hpf; URINE BILIRUBIN Negative (NEGATIVE); URINE BLOOD Negative (NEGATIVE); URINE COLOR Yellow; URINE GLUCOSE 3+ (NEGATIVE); URINE KETONE 1+ (NEGATIVE); URINE LEUKOCYTE ESTERASE Trace (NEGATIVE); URINE NITRATE Negative (NEGATIVE); URINE PROTEIN(semi-quant) 1+ (NEGATIVE); URINE RBC 0-2 /hpf; URINE UROBILINOGEN Negative (NEGATIVE)
[2018-08-10 14:55] LABS: ALANINE AMINOTRANSFERASE 46 U/L (9-52); ALBUMIN 4.5 gm/dL (3.5-5.0); ALKALINE PHOSPHATASE 234 U/L (50-136); ANION GAP 18 mmol/L (7-16); AST,SGOT 88 U/L (15-37); BILIRUBIN,TOTAL 0.8 mg/dL (0.0-1.0); BLOOD UREA NITROGEN 17 mg/dL (7-17); CALCIUM 9.5 mg/dL (8.4-10.2); CHLORIDE 101 mmol/L (98-107); CREATININE, serum 0.39 (0.52-1.25); POTASSIUM 4.8 mmol/L (3.4-5.0); SODIUM 132 mmol/L (137-145); TOTAL PROTEIN 8.5 gm/dL (6.4-8.2)
[2018-08-10 15:06] LABS: GLUCOSE 447 mg/dL (74-106)
[2018-08-10 15:07] LABS: C-REACTIVE PROTEIN < 0.5 mg/dL (0.0-0.9); CARBON DIOXIDE 13 mmol/L (22-30); TROPONIN-I < 0.012 ng/mL (0.000-0.035)
[2018-08-10] MEDS ORDERED: NOVOLOG FLEX100 U/ML SQ (16:29)
[2018-08-10 17:35] VITALS: PULSE 107
== END 2018-08-10 17:35 | disposition home or self-care (01) ==
LOC: COL.ER 13:50
PROVIDERS: Physician Assistant
DX: E10.10 Type 1 diabetes mellitus with ketoacidosis without coma (principal); E10.65 Type 1 diabetes mellitus with hyperglycemia; Z88.0 Allergy status to penicillin; Z88.8 Allergy status to other drugs, medicaments and biological substances
CPT/HCPCS: J1815; J7030

== ENCOUNTER 2018-09-02 11:48 | Emergency (ER) | payer BC ==
[~2018-09-02] VITALS: Ht 165.1 cm; Wt 61.4 kg
[2018-09-02 12:07] VITALS: BP 124/82; TEMP 98
[2018-09-02] MEDS ORDERED: CEPHALEXIN500 M1 PO ×2 (13:29)
[2018-09-02] MEDS ORDERED: DOXYCYCLINE 10100 MG PO (13:30)
[2018-09-02 13:45] VITALS: PULSE 108
== END 2018-09-02 13:45 | disposition home or self-care (01) ==
LOC: COL.ER 11:48
PROVIDERS: Physician Assistant
DX: S90.811A Abrasion, right foot, initial encounter (principal); E11.9 Type 2 diabetes mellitus without complications; Z23 Encounter for immunization; Z79.4 Long term (current) use of insulin; W22.8XXA Striking against or struck by other objects, initial encounter

== ENCOUNTER 2018-11-05 15:37 | Inpatient (IN) | payer BC ==
[~2018-11-05] VITALS: Ht 167.6 cm; Wt 65.3 kg
[2018-11-05] VITALS (330 sets, daily range): BP systolic 119–127; BP diastolic 84–86; PULSE 109–112; TEMP 98.6; O2SAT 85–100
[~2018-11-05 15:37] MED LIST changes: +CEPHALEXIN500 M1 PO
[2018-11-05 16:20] LABS: BASO % 0.2 % (0.0-2.0); GRAN # 7.7 (1.4-6.5); GRAN % 72.4 % (42.2-75.2); HEMATOCRIT 40.3 % (37.0-47.0); HEMOGLOBIN 14.4 g/dl (12.5-16.0); LYMPH # 2.3 (1.2-3.4); LYMPH % 21.1 % (20.0-51.0); MEAN CELL VOLUME 91 fl (80.0-100.0); MEAN CORPUSCULAR HEMOGLOBIN 33 pg (27.0-31.0); MEAN CORPUSCULAR HGB CONC 36 g/dl (33.0-37.0); MEAN PLATELET VOLUME 10.6 fl (7.4-10.4); MONO # 0.6 (0.1-0.6); MONO % 5.6 % (1.7-9.3); PLATELET COUNT 320 K/mm3 (130-400); RED BLOOD COUNT 4.41 M/mm3 (4.10-5.30); REDCELL DISTRIBUTION WIDTH-CV 12.9 % (11.5-14.5)
[2018-11-05 16:33] LABS: ACETONE,SERUM MODERATE; ALANINE AMINOTRANSFERASE 67 U/L (9-52); ALKALINE PHOSPHATASE 193 U/L (50-136); ANION GAP 27 mmol/L (7-16); AST,SGOT 56 U/L (15-37); BILIRUBIN,TOTAL 0.5 mg/dL (0.0-1.0); BLOOD UREA NITROGEN 11 mg/dL (7-17); CALCIUM 9.5 mg/dL (8.4-10.2); CHLORIDE 102 mmol/L (98-107); CREATININE, serum 0.54 (0.52-1.25); GLUCOSE 235 mg/dL (74-106); LIPASE 140 U/L (23-300); POTASSIUM 3.3 mmol/L (3.4-5.0); SODIUM 136 mmol/L (137-145); TOTAL PROTEIN 8.6 gm/dL (6.4-8.2)
[2018-11-05 16:36] LABS: C-REACTIVE PROTEIN < 0.5 mg/dL (0.0-0.9); CARBON DIOXIDE 7 mmol/L (22-30)
[2018-11-05 16:46] LABS: COLLECTION METHOD CLEAN CATCH
[2018-11-05 16:47] LABS: HCG,QUANTITATIVE < 2 mIU/mL (0-5)
[2018-11-05 17:13] LABS: MUCOUS Present /lpf; PH 5 (5-8); SQUAMOUS EPITHELIAL 0-2 /hpf; URINE APPEARANCE Hazy; URINE BACTERIA Rare /hpf; URINE BILIRUBIN Negative (NEGATIVE); URINE BLOOD 2+ (NEGATIVE); URINE COLOR Yellow; URINE GLUCOSE 3+ (NEGATIVE); URINE KETONE 2+ (NEGATIVE); URINE LEUKOCYTE ESTERASE Negative (NEGATIVE); URINE NITRATE Negative (NEGATIVE); URINE PROTEIN(semi-quant) 2+ (NEGATIVE); URINE RBC 0-2 /hpf; URINE UROBILINOGEN Negative (NEGATIVE)
[2018-11-05 17:28] LABS: MAGNESIUM 1.8 mg/dL (1.6-2.3); PHOSPHOROUS 2.9 mg/dL (2.5-4.5)
--- NOTE | 2018-11-05 17:55 | NUR ---
Patient arrives to ICU room 1 via ED cart and transfers to ICU bed with shuffling gait. IV mag and potassium replacement are running and LR MIVF hanging on straight tubing. Patient with complaint of stomach pain and burning to RAC peripheral IV. Both peripheral IV's are flushed and found to be patent.
--- NOTE | 2018-11-05 18:15 | NUR ---
Dr. Garcia called to clarify fluid and insulin orders. Report provided of patient FSBS of 106. MD states to start D51/2NS with 20 KCL at 250 and insulin gtt at 1unit/hr without bolus provided. Care ongoing.
[2018-11-05 22:00] LABS: CALCIUM 8.3 mg/dL (8.4-10.2); CREATININE, serum 0.36 (0.52-1.25); MAGNESIUM 1.9 mg/dL (1.6-2.3); POTASSIUM 3.5 mmol/L (3.4-5.0)
--- NOTE | 2018-11-05 23:05 | NUR ---
PT RESTING IN BED, C/O 7-8/10 HEADACHE AND ABD PAIN WITH MOVEMENT. CURRENTLY DENIES N/V. RECIEVED MORPHINE 2MG AT ABOUT 2000, AND WAS ABLE TO GET SOME SLEEP. HR-110'S OTHER VSS, PT REMAINS ON INSULIN DRIP, LAB DRAWN AT 2140, GAP NOTED TO NOW BE CLOSE, [place], ORDERS TO KEEP PT ON GTT TILL CO2 HAS NORMALIZED, NEXT LAB DRAW SCHEDULED FOR 0000. WILL CONTINUE TO MONITOR PT STATUS AND CONTINUE TO UPDATE PROVIDERS NEEDED.
[2018-11-06] VITALS (701 sets, daily range): BP systolic 112–128; BP diastolic 76–89; PULSE 102–109; TEMP 97.8–98.4; O2SAT 74–100
[2018-11-06 01:46] LABS: CALCIUM 8.6 mg/dL (8.4-10.2); CREATININE, serum 0.31 (0.52-1.25); POTASSIUM 4.2 mmol/L (3.4-5.0)
[2018-11-06 06:15] LABS: BASO % 0.3 % (0.0-2.0); EOS # 0.1 (0.0-0.7); EOS % 1.1 % (0-4.0); GRAN # 2.1 (1.4-6.5); GRAN % 29.5 % (42.2-75.2); LYMPH # 4.4 (1.2-3.4); LYMPH % 63.6 % (20.0-51.0); MEAN CELL VOLUME 92 fl (80.0-100.0); MEAN CORPUSCULAR HGB CONC 35 g/dl (33.0-37.0); MEAN PLATELET VOLUME 10.5 fl (7.4-10.4); MONO # 0.4 (0.1-0.6); MONO % 5.2 % (1.7-9.3); PLATELET COUNT 246 K/mm3 (130-400); RED BLOOD COUNT 3.56 M/mm3 (4.10-5.30); REDCELL DISTRIBUTION WIDTH-CV 13.1 % (11.5-14.5)
[2018-11-06 06:25] LABS: HEMOGLOBIN 11.5 g/dl (12.5-16.0); MEAN CORPUSCULAR HEMOGLOBIN 32 pg (27.0-31.0)
[2018-11-06 06:26] LABS: HEMATOCRIT 32.6 % (37.0-47.0)
[2018-11-06 06:28] LABS: ALBUMIN 3.3 gm/dL (3.5-5.0); BILIRUBIN,TOTAL 0.5 mg/dL (0.0-1.0); CALCIUM 8.6 mg/dL (8.4-10.2); CREATININE, serum 0.31 (0.52-1.25); POTASSIUM 3.8 mmol/L (3.4-5.0); TOTAL PROTEIN 6.1 gm/dL (6.4-8.2)
--- NOTE | 2018-11-06 08:00 | NUR ---
Shift assessment complete at this time. Plan of care reviewed at bedside with patient. Additional time taken to address any other needs or concerns. Vitals stable at this time. Pt c/o moderate-severe abdominal pain that is sharp in nature. Will administer PRN analgesic. Pt denies any other complaints or concerns. Bed in low position, call light within reach. Will continue to monitor.
--- NOTE | 2018-11-06 08:57 | NUR ---
CALVIN pierre met with the patient to discuss a discharge plan. The patient lives in [place] with her boyfriend, Ken. The patient does not use DME at home but reports she does have a service dog. Patient is independent with ADLs. The patient's PCP is Maggie John from [facility] in [place] and patient receives medications from [facility] in [place] or from [facility] with no difficulties. The patient does not have advanced directives in the EMR but was interested in a DPOA-HC form. CALVIN pierre provided the form. The patient plans to return home upon discharge with Ken providing transportation. She reports if Ken cannot she will drive herself home. There are no additional needs at this time.
--- NOTE | 2018-11-06 16:00 | NUR ---
Pt resting in bed. Reports moderate abdominal pain at a 7 out of 10. Will administer PRN morphine. Vitals stable at this time. Pt denies any other complaints or concerns at this time. Bed in low position, call light within reach. Will continue to monitor.
[2018-11-06 17:47] LABS: CALCIUM 8.6 mg/dL (8.4-10.2); CREATININE, serum 0.55 (0.52-1.25); POTASSIUM 4.5 mmol/L (3.4-5.0)
--- NOTE | 2018-11-06 19:19 | NUR ---
Bedside report given to JELLY Curry.
--- NOTE | 2018-11-06 19:20 | NUR ---
Received report from JELLY Dillon.
[2018-11-07] VITALS: BP 122/80; PULSE 110; TEMP 98.5
--- NOTE | 2018-11-07 01:17 | NUR ---
At 2238, patient reports feeling as though her blood sugar is getting low. A blood sugar was obtained and resulted as 57. Patient remained alert and oriented and denied feeling dizzy or lightheaded. Patient was given bob crackers with peanut butter and a glass of orange juice. Sugar was rechecked and resulted as 61 at 2301. Patient given a second glass of orange juice and additional crackers and peanut butter. At 2320, patient's sugar was 74, and 78 at 0000. Novolog insulin scheduled for 0000 held per sliding scale orders. Patient was given some sherbert and additional crackers and peanut butter per her request. Will continue to monitor.
[2018-11-07 04:00] VITALS: BP 130/92; PULSE 105; TEMP 98.4
[2018-11-07 06:33] LABS: HEMOGLOBIN 12.2 g/dl (12.5-16.0); MEAN CELL VOLUME 94 fl (80.0-100.0); MEAN CORPUSCULAR HEMOGLOBIN 33 pg (27.0-31.0); MEAN CORPUSCULAR HGB CONC 35 g/dl (33.0-37.0); MEAN PLATELET VOLUME 10.4 fl (7.4-10.4); PLATELET COUNT 258 K/mm3 (130-400); REDCELL DISTRIBUTION WIDTH-CV 13.5 % (11.5-14.5)
[2018-11-07 06:36] LABS: HEMATOCRIT 34.8 % (37.0-47.0)
[2018-11-07 06:43] LABS: CALCIUM 8.7 mg/dL (8.4-10.2); CREATININE, serum 0.37 (0.52-1.25); POTASSIUM 3.3 mmol/L (3.4-5.0)
[2018-11-07 07:01] LABS: BAND 1 % (0-10); BASOPHIL 1 % (0-2); EOSINOPHIL 2 % (0-4); LYMPHOCYTE 65 % (20.0-51.0); NEUTROPHILS 28 % (42.0-75.2); PLATELET ESTIMATE NORMAL (NORMAL)
--- NOTE | 2018-11-07 07:32 | NUR ---
Gave report to JELLY Torres.
--- NOTE | 2018-11-07 07:32 | NUR ---
Report recieved from JELLY Curry. Patient denies needs at this time. MIVF running at ordered rate to uncomplicated peripheral site. Care resumed.
[2018-11-07 07:55] VITALS: BP 132/97; PULSE 112; TEMP 98
--- NOTE | 2018-11-07 11:12 | NUR ---
FOREST RANGER TECHNICIAN student attented clinical rounds with the team. The patient is moving to medical floor today, 11/07. account services coordinator will continue to follow to ensure a safe discharge.
--- NOTE | 2018-11-07 11:24 | NUR ---
Patient expresses concern regarding missing work tomorrow and asks if the hospitalist service would be willing to DC her home this evening. This RN calls hospitalist service who state that they will set up follow up appointments for the patient and monitor her sugars this afternoon and tenatively plan to DC patient home tonight. Care ongoing.
[2018-11-07 11:44] VITALS: BP 135/108; PULSE 102; TEMP 98.2
--- NOTE | 2018-11-07 12:05 | NUR ---
Patient is agreeable but informs nurse that she plans to leave this evening with or without DC orders from MD. She does not want to miss work tomorrow. She understands AMA process.
--- NOTE | 2018-11-07 14:00 | NUR ---
Patient reports abdominal pain 07/29. However, she also states she is sleepy and keeps falling asleep.
--- NOTE | 2018-11-07 14:38 | NUR ---
Dr. Harper rounds again at this time. MD speaks with patient regarding DC plans and expresses he preference for her to stay inpatient through [facility]. Patient expresses that she feels fine and would like to leave today. MD provides education regarding tachycardia, glucose control, and his concerns for patient dischargins today.
--- NOTE | 2018-11-07 14:47 | NUR ---
Dr. Harper speaks with patient and determines that he will DC patient home as long as she will follow up with Dr. John at [facility] on Sunday.
--- NOTE | 2018-11-07 16:09 | NUR ---
Patient escorted to private ride at ED entrance. Prior DC education provided with patient verbalization of understanding.
== END 2018-11-07 16:10 | disposition home or self-care (01) | DRG 639 ==
LOC: COL.ER 15:37 → ICU 16:41
PROVIDERS: Emergency Medicine; Physician Assistant
DX: E10.10 Type 1 diabetes mellitus with ketoacidosis without coma (principal); Z91.19 Patient's noncompliance with other medical treatment and regimen; E87.6 Hypokalemia; R00.0 Tachycardia, unspecified; E86.0 Dehydration; R10.9 Unspecified abdominal pain; F32.9 Major depressive disorder, single episode, unspecified; F41.9 Anxiety disorder, unspecified; Z79.4 Long term (current) use of insulin
CPT/HCPCS: 99223-AI; J1644; J1815; J2270; J2405; J3475; J3480; J7030; J7040; J7120

== ENCOUNTER 2018-11-14 16:31 | Emergency (ER) | payer BC ==
[~2018-11-14] VITALS: Ht 167.6 cm; Wt 60.0 kg
[2018-11-14 18:39] VITALS: BP 119/76; PULSE 101; TEMP 98.1
== END 2018-11-14 18:40 | disposition home or self-care (01) ==
LOC: COL.ER 16:31
DX: T84.84XA Pain due to internal orthopedic prosthetic devices, implants and grafts, initial encounter (principal); M79.602 Pain in left arm; E10.9 Type 1 diabetes mellitus without complications

== ENCOUNTER 2018-11-17 11:22 | Inpatient (IN) | payer BC ==
[2018-11-17] VITALS (305 sets, daily range): BP systolic 112–130; BP diastolic 67–86; PULSE 95–112; TEMP 98.4; O2SAT 71–100
[~2018-11-17] VITALS: Ht 167.6 cm; Wt 67.6 kg
[2018-11-17 12:33] LABS: BASO % 0.4 % (0.0-2.0); EOS % 0.2 % (0-4.0); GRAN # 6.4 (1.4-6.5); GRAN % 71.5 % (42.2-75.2); HEMATOCRIT 37.9 % (37.0-47.0); LYMPH # 1.8 (1.2-3.4); LYMPH % 20.4 % (20.0-51.0); MEAN CELL VOLUME 96 fl (80.0-100.0); MEAN CORPUSCULAR HEMOGLOBIN 33 pg (27.0-31.0); MEAN CORPUSCULAR HGB CONC 34 g/dl (33.0-37.0); MEAN PLATELET VOLUME 10.7 fl (7.4-10.4); MONO # 0.6 (0.1-0.6); MONO % 6.5 % (1.7-9.3); PLATELET COUNT 314 K/mm3 (130-400); RED BLOOD COUNT 3.97 M/mm3 (4.10-5.30); REDCELL DISTRIBUTION WIDTH-CV 13.8 % (11.5-14.5)
[2018-11-17 12:41] LABS: ALANINE AMINOTRANSFERASE 36 U/L (9-52); ALBUMIN 4.3 gm/dL (3.5-5.0); ALKALINE PHOSPHATASE 201 U/L (50-136); ANION GAP 23 mmol/L (7-16); AST,SGOT 45 U/L (15-37); BILIRUBIN,TOTAL 0.4 mg/dL (0.0-1.0); BLOOD UREA NITROGEN 11 mg/dL (7-17); C-REACTIVE PROTEIN 0.7 mg/dL (0.0-0.9); CALCIUM 9.3 mg/dL (8.4-10.2); CHLORIDE 100 mmol/L (98-107); CREATININE, serum 0.49 (0.52-1.25); GLUCOSE 285 mg/dL (74-106); LIPASE 190 U/L (23-300); POTASSIUM 4.3 mmol/L (3.4-5.0); SODIUM 135 mmol/L (137-145); TOTAL PROTEIN 7.5 gm/dL (6.4-8.2)
[2018-11-17 12:46] LABS: CARBON DIOXIDE 11 mmol/L (22-30)
[2018-11-17 12:50] LABS: ACETONE,SERUM LARGE
[2018-11-17 12:59] LABS: TROPONIN-I < 0.012 ng/mL (0.000-0.035)
--- NOTE | 2018-11-17 14:39 | NUR ---
PT IS VERY TIRED. C/O PAIN IN RIGHT SIDE ABD DESCRIBED ACHEY AND SHARP WELL CHEST PAIN DESCRIBED TIGHT; PT STATES BOTH PAINS ARE CONSTANT.
[2018-11-17 15:46] LABS: CALCIUM 8.7 mg/dL (8.4-10.2); CREATININE, serum 0.33 (0.52-1.25)
[2018-11-17 18:44] LABS: CALCIUM 8.7 mg/dL (8.4-10.2); CREATININE, serum 0.28 (0.52-1.25); POTASSIUM 3.8 mmol/L (3.4-5.0)
--- NOTE | 2018-11-17 19:00 | NUR ---
REPORT GIVEN TO JELLY HULL.
--- NOTE | 2018-11-17 21:21 | NUR ---
Pts lactic back at 4.3. Kanika called and notified Roel REAVES. States he will let know. Will continue to [facility].
--- NOTE | 2018-11-17 22:04 | NUR ---
Pt called stating she felt like Bg was getting low. BG check with a result of 90. Snack of peanut butter and crackers given. Instructed Pt to call if she feels like Bg is getting low. Will recheck at 0000, unless needed earlier.
--- NOTE | 2018-11-17 22:38 | NUR ---
220: CALLED THIS RN REGARDING LACTIC ACID LEVEL. ORDER RECEIVED FOR 1L NS BOLUS AND RECHECK LACTIC IN FOUR HOURS. PT UPDATED. WILL CONTINUE TO [facility]. 2229: CALLED THIS RN REGARDING LABS. INFORMED HIM I SPOKE WITH GILBERTO BEAN REGARDING LACTIC. NO NEW ORDERS RECEIVED.
[2018-11-18] VITALS (77 sets, daily range): BP systolic 13–125; BP diastolic 82–275; PULSE 100–105; TEMP 98–98.2; O2SAT 93–100
--- NOTE | 2018-11-18 00:51 | NUR ---
CHECKED PTS BG AT 2325 WITH RESULT OF 53. PT STATES SHE FEELS LIKE ITS LOW, BUT IS AWAKE AND ALERT. OJ, PB AND CRACKERS GIVEN. BG RECHECKED AT 2343 WITH A RESULT OF 76. PT STATES SHE FEELS BETTER. SANDWICH AND SPRITE ZERO GIVEN TO PT. BG RECHECKED AT 0035 WITH RESULT OF 117. PT STATES SHE FEELS FINE. INSTRUCTED PT TO CALL IF SHE FEELS LIKE BG IS GETTING LOW. OTHERWISE WILL RECHECK BG AT 0300.
[2018-11-18 03:24] LABS: BASO % 0.3 % (0.0-2.0); EOS # 0.1 (0.0-0.7); EOS % 0.7 % (0-4.0); GRAN # 3.9 (1.4-6.5); GRAN % 52.2 % (42.2-75.2); HEMATOCRIT 34.2 % (37.0-47.0); HEMOGLOBIN 11.7 g/dl (12.5-16.0); LYMPH % 40.9 % (20.0-51.0); MEAN CELL VOLUME 96 fl (80.0-100.0); MEAN CORPUSCULAR HEMOGLOBIN 33 pg (27.0-31.0); MEAN CORPUSCULAR HGB CONC 34 g/dl (33.0-37.0); MEAN PLATELET VOLUME 10.6 fl (7.4-10.4); MONO # 0.4 (0.1-0.6); MONO % 5.5 % (1.7-9.3); PLATELET COUNT 264 K/mm3 (130-400); RED BLOOD COUNT 3.58 M/mm3 (4.10-5.30); REDCELL DISTRIBUTION WIDTH-CV 14.1 % (11.5-14.5)
[2018-11-18 03:35] LABS: ALBUMIN 3.1 gm/dL (3.5-5.0); BILIRUBIN,TOTAL 0.2 mg/dL (0.0-1.0); CALCIUM 8.1 mg/dL (8.4-10.2); CREATININE, serum 0.32 (0.52-1.25); MAGNESIUM 1.9 mg/dL (1.6-2.3); POTASSIUM 4.2 mmol/L (3.4-5.0); TOTAL PROTEIN 5.8 gm/dL (6.4-8.2)
--- NOTE | 2018-11-18 03:35 | NUR ---
Pt complaining of pain to chin and jaw. Pt noted to have pimple/possible abcess on chin that is red and swollen with no drainage. Pt has no swelling or redness under chin or to neck, only localized to singular spot. Pt is afebrile. Pt given tylenol and ice pack. Will endorse to day Rn to make sure day hospitalist is aware.
--- NOTE | 2018-11-18 03:54 | NUR ---
0342: Notified Roel RN with [facility] regarding Pt's lactic up to 4.9. Also, notified of pt's pimple/abcess to chin with redness and swelling. States he will notify . 0350: called this RN regarding Pt's increased lactic. Orders received for another 1L NS nolus and to increase IVF to 200ml/hr. Will continue to monitor.
--- NOTE | 2018-11-18 07:05 | NUR ---
Report recieved from Mildred REAVES, patient awakens easily. Only complaints are of pain on chin from "pimple" that radiates into right side of neck. Will monitor until seen by Hospitalist.
--- NOTE | 2018-11-18 10:30 | NUR ---
Warm, moist pack applied to chin per doctor's orders. Patient tolerates fair, states "it kumari". Encouragement given to leave pack on. Patient able to fall back to sleep shortly after pack applied. Call light in reach and bed low.
--- NOTE | 2018-11-18 11:36 | NUR ---
Motrin 200mg given for continued complaints of pain to pimple on chin. Patient returns to sleep easily during conversation. FLACC score 0, Numerical score 6. Will continue to monitor.
[2018-11-18] MEDS ORDERED: MONODOX100 PO (13:34)
--- NOTE | 2018-11-18 13:36 | NUR ---
Patient states PCP (Maggie John) is located in [place]. States next appointment was scheduled today or tomorrow, declines RN to call and schedule. States "I'll just do a same day appointment."
--- NOTE | 2018-11-18 14:27 | NUR ---
Discharge instructions and teaching done with patient. Limited involvement with teaching. States will see PCP in one week, continues to refuse for RN to call and schedule. Awaiting ride at this time
--- NOTE | 2018-11-18 16:30 | NUR ---
Discharge to home with friend, RAJENDRA.
== END 2018-11-18 16:30 | disposition home or self-care (01) | DRG 638 ==
LOC: COL.ER 11:22 → ICU 13:00
PROVIDERS: Emergency Medicine; ADMIT Student in an Organized Health Care Education/Training Program
DX: E10.10 Type 1 diabetes mellitus with ketoacidosis without coma (principal); L02.01 Cutaneous abscess of face; E10.649 Type 1 diabetes mellitus with hypoglycemia without coma; Z79.4 Long term (current) use of insulin
CPT/HCPCS: 99223-AI; 99232-AI; 99239; J1815; J2405; J7030

== ENCOUNTER 2018-12-09 08:08 | Inpatient (IN) | payer BC ==
[~2018-12-09] VITALS: Ht 167.6 cm; Wt 65.5 kg
[2018-12-09] VITALS (624 sets, daily range): BP systolic 114–145; BP diastolic 67–101; PULSE 116–132; TEMP 97.7–98.5; O2SAT 77–100
[~2018-12-09 08:08] MED LIST changes: +MONODOX100 PO
[2018-12-09 09:03] LABS: BASO # 0.1 (0.0-0.2); BASO % 0.9 % (0.0-2.0); EOS % 0.6 % (0-4.0); GRAN # 2.5 (1.4-6.5); GRAN % 38.8 % (42.2-75.2); HEMATOCRIT 42.6 % (37.0-47.0); HEMOGLOBIN 14.2 g/dl (12.5-16.0); LYMPH # 3.5 (1.2-3.4); LYMPH % 53.1 % (20.0-51.0); MEAN CELL VOLUME 97 fl (80.0-100.0); MEAN CORPUSCULAR HEMOGLOBIN 32 pg (27.0-31.0); MEAN CORPUSCULAR HGB CONC 33 g/dl (33.0-37.0); MEAN PLATELET VOLUME 11.3 fl (7.4-10.4); MONO # 0.4 (0.1-0.6); MONO % 6.1 % (1.7-9.3); PLATELET COUNT 303 K/mm3 (130-400); REDCELL DISTRIBUTION WIDTH-CV 13.1 % (11.5-14.5)
[2018-12-09 09:19] LABS: ALANINE AMINOTRANSFERASE 31 U/L (9-52); ALBUMIN 4.7 gm/dL (3.5-5.0); ALKALINE PHOSPHATASE 262 U/L (50-136); ANION GAP 29 mmol/L (7-16); AST,SGOT 36 U/L (15-37); BILIRUBIN,TOTAL 0.6 mg/dL (0.0-1.0); BLOOD UREA NITROGEN 15 mg/dL (7-17); CALCIUM 9.7 mg/dL (8.4-10.2); CHLORIDE 97 mmol/L (98-107); CREATININE, serum 0.52 (0.52-1.25); POTASSIUM 4.5 mmol/L (3.4-5.0); SODIUM 135 mmol/L (137-145)
[2018-12-09 09:31] LABS: CARBON DIOXIDE 9 mmol/L (22-30); GLUCOSE 654 mg/dL (74-106)
[2018-12-09 09:32] LABS: ACETONE,SERUM MODERATE
[2018-12-09 09:45] LABS: LIPASE 4480 U/L (23-300)
[2018-12-09 10:48] LABS: COLLECTION METHOD CLEAN CATCH
[2018-12-09 10:55] LABS: MUCOUS Present /lpf; PH 5 (5-8); SQUAMOUS EPITHELIAL 0-2 /hpf; URINE APPEARANCE Clear; URINE BACTERIA None Seen /hpf; URINE BILIRUBIN Negative (NEGATIVE); URINE BLOOD Negative (NEGATIVE); URINE COLOR Colorless; URINE GLUCOSE 3+ (NEGATIVE); URINE KETONE 2+ (NEGATIVE); URINE LEUKOCYTE ESTERASE Negative (NEGATIVE); URINE NITRATE Negative (NEGATIVE); URINE PROTEIN(semi-quant) Negative (NEGATIVE); URINE RBC 0-2 /hpf; URINE UROBILINOGEN Negative (NEGATIVE)
--- NOTE | 2018-12-09 11:45 | NUR ---
PT C/O SHARP PAIN IN ABD, CHEST, AND PELVIC REGION; RATING IT 9/10. PT ALSO STATES SHE HAS DRY MOUTH AND OFFERED ICE CHIPS.
--- NOTE | 2018-12-09 11:45 | NUR ---
WHEN PT ARRIVED SHE WAS SLURRING WORDS. BY 1145 PT WAS SMILING AND NOT SLURRING. WHEN ASSESSING ABD PT GRIMACED AT JUST THE TOUCH OF SKIN AND SAID IT HURT. 1215 GAS DISPATCHER IN ROOM AND PT IS SLURRING WORDS.
[2018-12-09] MEDS ORDERED: POTASSIUM (12:03)
[2018-12-09] MEDS ORDERED: ACID REDUCER (12:04)
[2018-12-09] MEDS ORDERED: DIFLUCAN150 MG PO (12:05)
[2018-12-09] MEDS ORDERED: KLOR-CON 88 ME1 PO (12:24)
[2018-12-09 12:31] LABS: CALCIUM 9.4 mg/dL (8.4-10.2); CREATININE, serum 0.55 (0.52-1.25); PHOSPHOROUS 4.5 mg/dL (2.5-4.5); POTASSIUM 4.8 mmol/L (3.4-5.0)
[2018-12-09 14:26] LABS: CALCIUM 9.6 mg/dL (8.4-10.2); CREATININE, serum 0.52 (0.52-1.25); POTASSIUM 4.4 mmol/L (3.4-5.0)
--- NOTE | 2018-12-09 14:50 | NUR ---
PT UNEXPEDEDLY VOMITING X1. PT STATES SHE FELT BETTER AFTER AND INSISTED ON TAKING PO ATARAX.
--- NOTE | 2018-12-09 16:00 | NUR ---
1530: BS 445, CONTACTED AMBER LANCE WITH UPDATE. 1600: CURRENT D5 1/2 NS WITH 20MEQ KCL D/C AND NS WITH 20MEQ KCL INITIATED PER 'S ORDERS. 1634: BS 280, INSULIN DECREASED PER PROTOCOL, AMBER OLIVA NOTIFIED OF CHANGE.
[2018-12-09 17:12] LABS: CALCIUM 9.5 mg/dL (8.4-10.2); CREATININE, serum 0.49 (0.52-1.25); POTASSIUM 4.2 mmol/L (3.4-5.0)
--- NOTE | 2018-12-09 17:15 | NUR ---
DUE TO BS FALLING UNDER 250. NS WITH 20MEQ KCL IS D/C. AND NS WITH 20MEQ KCL INITIATED PER PROVIDERS ORDER.
--- NOTE | 2018-12-09 17:43 | NUR ---
PT VOMITING X1 EPISODE AND AFTER STATED "I FEEL BETTER".
--- NOTE | 2018-12-09 19:38 | NUR ---
PT NAUSEATED AND DRY HEAVING. PT IS ASKED IF DILAUDID NEEDS TO BE ADDED TO LIST OF ALLERGIES DUE TO GETTING NAUSEATED AND VOMITING AFTER EACH DOSE OF SLOWLY ADMINISTERD DILAUDID. PT STATES NO AND ASKS FOR SOMETHING STRONGER THAN DILAUDID AND IF THE DOCTOR WILL SWITCH TO MORPHINE. WILL CONTACT PM PROVIDER.
--- NOTE | 2018-12-09 20:00 | NUR ---
Patient assessed, states she is having abdominal pain and requesting morphine instead of dilaudid (patient has been dry heaving and vomiting with dilaudid administrations per report), and wants something to drink. Patient notified that I will contact provider for morphine medication and address diet once GAP is closed.
[2018-12-09 20:10] LABS: CALCIUM 9.2 mg/dL (8.4-10.2); CREATININE, serum 0.45 (0.52-1.25); POTASSIUM 4.1 mmol/L (3.4-5.0)
[2018-12-09 22:37] LABS: CALCIUM 9.1 mg/dL (8.4-10.2); CREATININE, serum 0.37 (0.52-1.25); POTASSIUM 3.7 mmol/L (3.4-5.0)
[2018-12-10] VITALS (183 sets, daily range): BP systolic 118–153; BP diastolic 75–100; PULSE 107–115; TEMP 97.7–98.9; O2SAT 38–100
--- NOTE | 2018-12-10 | NUR ---
Insulin gtt D/C per provider order.
[2018-12-10 00:44] LABS: CALCIUM 9.2 mg/dL (8.4-10.2); CREATININE, serum 0.43 (0.52-1.25)
[2018-12-10 02:28] LABS: CREATININE, serum 0.39 (0.52-1.25); POTASSIUM 4.3 mmol/L (3.4-5.0)
[2018-12-10 05:42] LABS: BASO % 0.3 % (0.0-2.0); EOS % 0.4 % (0-4.0); GRAN # 4.2 (1.4-6.5); GRAN % 59.5 % (42.2-75.2); HEMOGLOBIN 12.3 g/dl (12.5-16.0); LYMPH # 2.3 (1.2-3.4); LYMPH % 32.3 % (20.0-51.0); MEAN CELL VOLUME 96 fl (80.0-100.0); MEAN CORPUSCULAR HEMOGLOBIN 32 pg (27.0-31.0); MEAN CORPUSCULAR HGB CONC 34 g/dl (33.0-37.0); MEAN PLATELET VOLUME 10.7 fl (7.4-10.4); MONO # 0.5 (0.1-0.6); MONO % 7.2 % (1.7-9.3); PLATELET COUNT 256 K/mm3 (130-400); RED BLOOD COUNT 3.81 M/mm3 (4.10-5.30); REDCELL DISTRIBUTION WIDTH-CV 13.5 % (11.5-14.5)
[2018-12-10 05:44] LABS: HEMATOCRIT 36.6 % (37.0-47.0)
[2018-12-10 05:58] LABS: CALCIUM 8.9 mg/dL (8.4-10.2); CHOLESTEROL RISK RATIO 5.5; CREATININE, serum 0.38 (0.52-1.25); MAGNESIUM 1.5 mg/dL (1.6-2.3); POTASSIUM 4.3 mmol/L (3.4-5.0)
--- NOTE | 2018-12-10 10:17 | NUR ---
web worker attended clinical rounds and met with patient to discuss discharge planning. Patient had 1 ED visit and 2 ICU stays in October. Patient states she receives her insulin from the [facility] in [place]. Worker confirmed with the [facility] that patient calls when she is out of insulin. [facility] last shipment to patient was on 11/14/18 of a 25 day supply of Novalog and an 83 day supply of Levemeir. Patient stated she goes to the [facility] endocrinology/diabetes clinic in [place], [place]. Worker contacted [facility] clinic and confirmed that patient was last seen there in [place] and they have had 2 cancellations and 1 no show since. This clinic confirmed that they gave a script for a mini pump last March, however, have not seen the patient to further this. Worker collaborated with AYLA Horowitz, regarding the above information. Patient told worker that she is familiar with where our [address] [place] [address] clinic is and is agreeable to establish primary care with them. Lor will schedule appointment with [facility] clinic and [place] [facility] upon discharge. Patient lives with her boyfriend in [place] and works at [employer]. Patient states she has not made advance directives and declines offer for assistance making them.
--- NOTE | 2018-12-10 10:33 | NUR ---
Initial visit; Patient thanked Director Of Market Research for looking in on her and offering God's blessings.
--- NOTE | 2018-12-10 10:41 | NUR ---
Report called to Medical. Questions addressed. Pt to room 352 via acc by staff.
--- NOTE | 2018-12-10 11:00 | NUR ---
Patient arrived to room via wheelchair, is awake but sleepy. States she has some abdominal pain, requesting toradol, informed it was too early, she was ok for now, does request crackers and peanut butter, was provided this along with diet sprite. Lungs are clear, heart is regular, slightly tachycardic. Abdomen is soft and nontender to touch, does complain of the abdominal pain, does not make her feel nauseated. States she urinates without problem. Pulses +2x4. No swelling noted. Is alert and oriented x4. Call light and personal items are within reach.
--- NOTE | 2018-12-10 18:50 | NUR ---
Patient is resting in bed, was able to eat some of her turkey dinner, did request salad and the alternate dinner as well. States abdominal pain is much better. Drinking fluids well. Call light and personal items are within reach.
--- NOTE | 2018-12-10 19:25 | NUR ---
Pt resting in bed. No distress noted. Pt reports pain 7/10 in abdomen. Requests PRN Toradol. Respirations even and unlabored. Lungs clear. Abdomen is distended and firm. BS+ x4. HS Miralax given. Pt is ST on telemetry. OTher VSS. Pt denies further needs. Will continue to monitor.
--- NOTE | 2018-12-10 21:58 | NUR ---
Pt c/o abdominal pain/tenderness 08/28. Pt states that her pain improved with Toradol that was given previosuly, but she had a small, firm BM, which increased her pain again. PRN [place] given.
--- NOTE | 2018-12-10 23:40 | NUR ---
Pain unrelieved by [place] 1 tab. Second tablet given.
--- NOTE | 2018-12-11 03:16 | NUR ---
Pt sitting up in bed. She reports feeling like her blood sugar is low. CBG checked-57. Hypoglycemic protocol initiated. Juice given. Will recheck CBG and continue to monitor.
[2018-12-11 03:17] VITALS: BP 123/84; PULSE 113; TEMP 98.6
--- NOTE | 2018-12-11 03:48 | NUR ---
Pts blood sugar normalized to 102 after 4 ox apple juice. Pt also requested a sandwich. Will recheck CBG in 1 hour.
--- NOTE | 2018-12-11 05:03 | NUR ---
Pts CBG is 121 now. Symptoms have resolved.
[2018-12-11 06:16] LABS: BASO % 0.4 % (0.0-2.0); EOS # 0.1 (0.0-0.7); EOS % 1.6 % (0-4.0); GRAN # 2.7 (1.4-6.5); GRAN % 46.9 % (42.2-75.2); HEMOGLOBIN 10.7 g/dl (12.5-16.0); LYMPH # 2.4 (1.2-3.4); LYMPH % 41.9 % (20.0-51.0); MEAN CELL VOLUME 97 fl (80.0-100.0); MEAN CORPUSCULAR HEMOGLOBIN 33 pg (27.0-31.0); MEAN CORPUSCULAR HGB CONC 34 g/dl (33.0-37.0); MONO # 0.5 (0.1-0.6); MONO % 8.8 % (1.7-9.3); PLATELET COUNT 228 K/mm3 (130-400); REDCELL DISTRIBUTION WIDTH-CV 13.4 % (11.5-14.5)
[2018-12-11 06:19] LABS: HEMATOCRIT 31.1 % (37.0-47.0)
--- NOTE | 2018-12-11 06:32 | NUR ---
Pt resting this AM. She was able to get a few hours of sleep this morning. No acute distress throughout the night. No complaints of pain this AM. BMx1 reported last HS. No needs noted.
[2018-12-11 06:43] LABS: CALCIUM 8.2 mg/dL (8.4-10.2); CREATININE, serum 0.33 (0.52-1.25); MAGNESIUM 2.2 mg/dL (1.6-2.3); POTASSIUM 4.2 mmol/L (3.4-5.0)
[2018-12-11 07:43] VITALS: BP 122/72; PULSE 103; TEMP 98
--- NOTE | 2018-12-11 09:26 | NUR ---
Pt awake and alert sitting up in bed upon entry, has some C/O pain medications given for relief, shift assessments complete, left Pt call light in reach, bed in lowest position.
[2018-12-11] MEDS ORDERED: MIRALAX510G PO (10:02)
[2018-12-11] MEDS ORDERED: ULTRAM 50MG TAB50 MG PO (10:03)
[2018-12-11] MEDS ORDERED: DULCOLAX S10 MG/SUPP RC (10:11)
[2018-12-11 11:11] VITALS: BP 123/84; PULSE 106; TEMP 97.8
--- NOTE | 2018-12-11 13:25 | NUR ---
SW attended clinical rounds. The patient is to discharge back home with her boyfriend today, 12/11. The unit tender secured the patient an appointment with Dr. Rivas at the [facility] on 12/19 at 0900. The unit tender also consulted diabetes education for the patient. Diabetes Ed is to meet with the patient before she discharges. No additional needs at this time.
--- NOTE | 2018-12-11 15:15 | NUR ---
Pt discharged to home, education provided, questions answered, escorted to entrance, left with family via private auto.
== END 2018-12-11 15:16 | disposition home or self-care (01) | DRG 637 ==
LOC: COL.ER 08:08 → ICU 09:00 → MEDICAL 09:00
PROVIDERS: Emergency Medicine; Physician Assistant; ADMIT Student in an Organized Health Care Education/Training Program
DX: E10.10 Type 1 diabetes mellitus with ketoacidosis without coma (principal); K85.90 Acute pancreatitis without necrosis or infection, unspecified; R00.0 Tachycardia, unspecified; E83.42 Hypomagnesemia; B37.3 Candidiasis of vulva and vagina; K59.00 Constipation, unspecified; Z88.0 Allergy status to penicillin
CPT/HCPCS: 99223-AI; 99232-AI; 99239; J1170; J1815; J1885; J2270; J2405; J2550; J3475; J3480; J7030; Q9967

== ENCOUNTER 2019-05-04 23:38 | Emergency (ER) | payer BC ==
[~2019-05-04] VITALS: Ht 167.6 cm; Wt 65.9 kg
[~2019-05-04 23:38] MED LIST changes: +ACID REDUCER; +DULCOLAX S10 MG/SUPP RC; +KLOR-CON 88 ME1 PO; +MIRALAX510G PO; +POTASSIUM; +ULTRAM 50MG TAB50 MG PO
[2019-05-04 23:41] VITALS: BP 135/91; TEMP 98.7
[2019-05-05 00:01] LABS: BASO % 0.3 % (0.0-2.0); EOS % 0.3 % (0-4.0); GRAN # 3.6 (1.4-6.5); GRAN % 57.2 % (42.2-75.2); HEMATOCRIT 40.1 % (37.0-47.0); HEMOGLOBIN 13.8 g/dl (12.5-16.0); LYMPH # 2.3 (1.2-3.4); MEAN CELL VOLUME 90 fl (80.0-100.0); MEAN CORPUSCULAR HEMOGLOBIN 31 pg (27.0-31.0); MEAN CORPUSCULAR HGB CONC 34 g/dl (33.0-37.0); MEAN PLATELET VOLUME 10.1 fl (7.4-10.4); MONO # 0.4 (0.1-0.6); PLATELET COUNT 310 K/mm3 (130-400); RED BLOOD COUNT 4.44 M/mm3 (4.10-5.30); REDCELL DISTRIBUTION WIDTH-CV 11.9 % (11.5-14.5)
[2019-05-05 00:12] LABS: ALBUMIN 4.1 gm/dL (3.5-5.0); CALCIUM 9.5 mg/dL (8.4-10.2); CREATININE, serum 0.27 (0.52-1.25); TOTAL PROTEIN 7.1 gm/dL (6.4-8.2)
[2019-05-05 03:39] LABS: COLLECTION METHOD CATHETER
[2019-05-05 03:45] LABS: MUCOUS Present /lpf; PH 5 (5-8); SQUAMOUS EPITHELIAL None Seen /hpf; URINE APPEARANCE Clear; URINE BACTERIA None Seen /hpf; URINE BILIRUBIN Negative (NEGATIVE); URINE BLOOD Negative (NEGATIVE); URINE COLOR Amber; URINE GLUCOSE 3+ (NEGATIVE); URINE KETONE 2+ (NEGATIVE); URINE LEUKOCYTE ESTERASE Negative (NEGATIVE); URINE NITRATE Positive (NEGATIVE); URINE PROTEIN(semi-quant) Negative (NEGATIVE)
[2019-05-05 04:33] VITALS: PULSE 136
== END 2019-05-05 04:33 | disposition home or self-care (01) ==
LOC: COL.ER 23:38
PROVIDERS: Emergency Medicine
DX: I88.0 Nonspecific mesenteric lymphadenitis (principal); R30.0 Dysuria; E10.9 Type 1 diabetes mellitus without complications; Z85.6 Personal history of leukemia; Z88.0 Allergy status to penicillin; Z88.8 Allergy status to other drugs, medicaments and biological substances
CPT/HCPCS: J1630; J1885; J2270; J2405; J7030; Q9967